=== PATIENT | female | born 2000 | race Caucasian/White ===

== ENCOUNTER 2019-02-06 01:06 | Emergency (ER) | payer OTHER ==
[~2019-02-06] VITALS: Ht 157.4 cm; Wt 99.7 kg
--- NOTE | 2019-02-06 01:41 | ED Integumentary General ---
General Chief Complaint: Skin/Wound Problems Stated Complaint: SUNBURN ON BACK Nursing Triage Note: Patient states that she got sunburned on 02/03/19 on her upper back. Patient states that it itches and she is unable to sleep. Patient rates her pain at a 10. Patient does have a sunburn on the upper portion of the back. No blisters are noted. Source: patient History of Present Illness Date Seen by Provider: Feb 06, 2019 Time Seen by Provider: 01:28 Initial Comments PT ARRIVES VIA POV C/O SUNBURN TO POSTERIOR SHOULDERS AND UPPER BACK--OCCURRED ON TUESDAY MORNING 02/03/19 STATES SHE WAS IN THE SUN FOR APPROXIMATELY AN HOUR--NO SUNSCREEN--WATCHING A "[employer]OT BALL GAME" PT STATES "I HAVE A SUN ALLERGY ANYWAY AND I BURN EASY" STATES IT HURTS AND IT ITCHES, AND SHE CAN'T GET TO SLEEP STATES SHE TOOK 2 IBUPROFEN 200 GM AT MIDNIGHT, AND PUT "CORTISONE AND ALOE" ON IT JUST PRIOR TO ARRIVAL STATES SHE "CANT' TAKE BENADRYL BECAUSE I HAVE A PROLONGED QT" ( STATES SHE HAD A COUSIN WHO FROM A REACTION TO AN EPIDURAL, SO SHE GOT TESTED FOR IT, AND STATES THAT MULTIPLE FAMILY MEMBERS WERE ALL TESTED FOR PROLONGED QT) PCP: SUPERVISOR CARTOGRAPHY: DARIEL MASSEY / JAZZMINE Allergies and Home Medications Patient Home Medication List Home Medication List Reviewed: Yes Review of Systems Review of Systems Constitutional: no symptoms reported EENTM: no symptoms reported Respiratory: no symptoms reported Cardiovascular: no symptoms reported Gastrointestinal: no symptoms reported Genitourinary: no symptoms reported Musculoskeletal: no symptoms reported Skin: see HPI Psychiatric/Neurological: No Symptoms Reported Endocrine: No Symptoms Reported Hematologic/Lymphatic: No Symptoms Reported Past Nlwdugv-Mubiau-Etarhv Hx Patient Social History Alcohol Use: Denies Use Recreational Drug Use: No Smoking Status: Never a Smoker Recent Foreign Travel: No Contact w/Someone Who Travel: No Recent Infectious Disease Expo: No Recent Hopitalizations: No Ebola Symptoms: Denies Symptoms Listed Physical Abuse: No Sexual Abuse: No Mistreated: No Fear: No Seasonal Allergies Seasonal Allergies: No Past Medical History Surgeries: Yes Adenoidectomy, Tonsillectomy Respiratory: No Cardiac: Yes (PROLONGED QT) Neurological: No Genitourinary: No Gastrointestinal: No Musculoskeletal: No Endocrine: No HEENT: No Cancer: No Psychosocial: No Integumentary: No Blood Disorders: No Physical Exam Vital Signs Vital Signs - First Documented 02/06/19 01:17 Temp 36.6 Pulse 90 Resp 18 B/P (MAP) 143/99 Pulse Ox 100 O2 Delivery Room Air Capillary Refill : General Appearance: WD/WN, no apparent distress Neck: normal inspection Cardiovascular: regular rate, rhythm Respiratory: normal breath sounds Extremities: normal inspection Neurologic/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 ) Progress/Results/Core Measures Results/Orders Vital Signs/I&O 02/06/19 02/06/19 01:17 01:46 Temp 36.6 36.6 Pulse 90 90 Resp 18 18 B/P (MAP) 143/99 Pulse Ox 100 100 O2 Delivery Room Air Room Air Departure Impression Primary Impression: 1st degree sunburn Disposition: 01 HOME, SELF-CARE Condition: Stable Departure-Patient Inst. Referrals: NO,LOCAL PHYSICIAN (PCP/Family) Primary Care Physician Patient Instructions: Sunburn (DC) Add. Discharge Instructions: MIX EQUAL PARTS OF 1% HYDROCORTISONE CREAM AND BENADRYL CREAM, AND APPLY TO AFFECTED AREAS EVER 3-4 HOURS TAKE IBUPROFEN 800 MG 4 TIMES A DAY NEEDED FOR PAIN TAKE TYLENOL 1 GRAM 4 TIMES A DAY NEEDED FOR PAIN TAKE CLARITIN OR ZYRTEC NEEDED FOR ITCHING. TAKE UNISOM NEEDED FOR SLEEP COOL COMPRESSES TO AREA AT 20 MINUTE INTERVALS All discharge instructions reviewed with patient and/or family. Voiced understanding. ROMAN ORDONEZ DO Feb 06, 2019 01:41
== END 2019-02-06 01:46 | disposition home or self-care (01) ==
LOC: ER 01:13
DX: L55.0 Sunburn of first degree (principal); Z90.89 Acquired absence of other organs
CPT/HCPCS: 99282

== ENCOUNTER 2020-07-31 18:20 | Emergency (ER) | payer OTHER ==
[~2020-07-31] VITALS: Ht 162 cm; Wt 113.6 kg
[2020-07-31 18:33] VITALS: BP 142/94
--- NOTE | 2020-07-31 18:50 | ED General ---
General Chief Complaint: General Problems/Pain Stated Complaint: REMOVED SX GLUE HAS HOLE ON CHEST SITE Source of Information: Patient Exam Limitations: No Limitations History of Present Illness Date Seen by Provider: Jul 31, 2020 Time Seen by Provider: 18:45 Initial Comments Patient is a 20-year-old female who presents to the emergency department today with a chief complaint of "a hole" on her chest where she had a Linq device placed approximately [address] Whyte at [facility] in [place]. Patient has a history of "long QT syndrome" and had the Linq placed for monitoring of her heart rate and rhythm. Patient denies any palpitations shortness of breath or other complaints of illness or injury. She was just concerned because the skin affix that was over the insertion site had started to come off. All other review of systems reviewed and negative except as stated above. Timing/Duration: 2-3 Days Severity: Mild Associated Systoms: Denies Symptoms Allergies and Home Medications Patient Home Medication List Home Medication List Reviewed: Yes Review of Systems Review of Systems Constitutional: see HPI EENTM: no symptoms reported Respiratory: no symptoms reported Cardiovascular: no symptoms reported Gastrointestinal: no symptoms reported All Other Systems Reviewed Negative Unless Noted: Yes Past Urucgvt-Ngkihk-Dtiwhm Hx Patient Social History Recent Hopitalizations: No Seasonal Allergies Seasonal Allergies: No Past Medical History Surgeries: Yes Adenoidectomy, Tonsillectomy Respiratory: No Cardiac: Yes (PROLONGED QT) Neurological: No Genitourinary: No Gastrointestinal: No Musculoskeletal: No Endocrine: No HEENT: No Cancer: No Psychosocial: No Integumentary: No Blood Disorders: No Physical Exam Vital Signs Vital Signs - First Documented 07/31/20 18:33 Temp 36.4 Pulse 65 Resp 18 B/P (MAP) 142/94 (110) Pulse Ox 96 Capillary Refill : Less Than 3 Seconds Height, Weight, BMI Height: '" Weight: lbs. oz. kg; 40.00 BMI Method: General Appearance: No Apparent Distress, WD/WN Eyes: Bilateral Eye Normal Inspection Neck: Normal Inspection Respiratory: No Accessory Muscle Use, No Respiratory Distress, Other (Small wound to the left of center on the patient's chest wall just between the breasts with no active drainage no surrounding erythema nontender) Neurologic/Psychiatric: Alert, Oriented x3, No Motor/Sensory Deficits, Normal Mood/Affect Skin: Normal Color, Warm/Dry, Other (As above, see chest exam) Progress/Results/Core Measures Suspected Sepsis SIRS Temperature: Pulse: 65 Respiratory Rate: 18 Blood Pressure 142 /94 Mean: 110 Results/Orders Vital Signs/I&O 07/31/20 18:33 Temp 36.4 Pulse 65 Resp 18 B/P (MAP) 142/94 (110) Pulse Ox 96 Capillary Refill : Less Than 3 Seconds Progress Note : Time: 19:06 Progress Note Remaining glue is removed from the area of insertion of the Linq device. Wound is cleaned. His skin affix is replaced with a piece of Steri-Strip over the top. Departure Impression Primary Impression: Wound dehiscence Disposition: HOME, SELF-CARE Condition: Stable Departure-Patient Inst. Decision time for Depature: 19:06 Referrals: NO,LOCAL PHYSICIAN (PCP/Family) Primary Care Physician Patient Instructions: Surgical Wound (DC) Add. Discharge Instructions: Keep the wound clean and dry. The Steri-Strip will come off over the course of several days. You may bathe the area. Return to the emergency department if you notice any redness around the wound site, drainage if you have fever or any other emergent concerning symptoms. Please keep your follow-up appointments with your editor house organ. BUCK MORTON MD Jul 31, 2020 18:50
== END 2020-07-31 19:16 | disposition home or self-care (01) ==
LOC: EDUNIT# 18:20 → ER 18:21
DX: T81.30XA Disruption of wound, unspecified, initial encounter (principal)

== ENCOUNTER 2020-12-31 23:16 | Emergency (ER) | payer OTHER ==
[~2020-12-31] VITALS: Ht 160 cm; Wt 136.0 kg
[2020-12-31 23:25] VITALS: BP 126/85
[2020-12-31 23:54] LABS: BASOPHILS % (AUTO) 0 % (0-10); EOSINOPHILS # (AUTO) 0.2 10^3/uL (0.0-0.3); EOSINOPHILS % (AUTO) 2 % (0-10); HEMATOCRIT 41 % (35-52); HEMOGLOBIN 13.7 g/dL (11.5-16.0); LYMPHOCYTES # (AUTO) 3.2 10^3/uL (1.0-4.0); LYMPHOCYTES % (AUTO) 32 % (12-44); MEAN CORPUSCULAR HEMOGLOBIN 30 pg (25-34); MEAN CORPUSCULAR HGB CONC 34 g/dL (32-36); MEAN CORPUSCULAR VOLUME 89 fL (80-99); MEAN PLATELET VOLUME 10.1 fL (9.0-12.2); MONOCYTES # (AUTO) 0.9 10^3/uL (0.0-1.0); MONOCYTES % (AUTO) 9 % (0-12); NEUTROPHILS # (AUTO) 5.8 10^3/uL (1.8-7.8); NEUTROPHILS % (AUTO) 57 % (42-75); PLATELET COUNT 251 10^3/uL (130-400); WHITE BLOOD COUNT 10.2 10^3/uL (4.3-11.0)
[2021-01-01 00:04] LABS: POTASSIUM 4.2 MMOL/L (3.6-5.0)
[2021-01-01 00:10] LABS: CREATININE SERUM 0.75 MG/DL (0.60-1.30)
[2021-01-01 00:12] LABS: MAGNESIUM 1.8 MG/DL (1.6-2.4)
--- NOTE | 2021-01-01 00:54 | ED General ---
General Chief Complaint: Cardiac/General Problems Stated Complaint: HEART PALPITATIONS,COVID+ Nursing Triage Note: states palpatations woke pt from sleep Allergies and Home Medications Allergies Coded Allergies: No Known Drug Allergies (Unverified , 01/01/21) Past Damtkho-Cucodb-Atawqf Hx Patient Social History Tobacco Use?: No Use of E-Cig and/or Vaping dev: No Substance use?: No Alcohol Use?: No Pt feels they are or have been: No Immunizations Up To Date Influenza Vaccine Up-to-Date: Yes; Up-to-Date Seasonal Allergies Seasonal Allergies: No Past Medical History Surgeries: Yes Adenoidectomy, Tonsillectomy Respiratory: No Cardiac: Yes (PROLONGED QT) Neurological: No Genitourinary: No Gastrointestinal: No Musculoskeletal: No Endocrine: No HEENT: No Cancer: No Psychosocial: Yes Bipolar, Depression Integumentary: No Blood Disorders: No Physical Exam Vital Signs Vital Signs - First Documented 12/31/20 23:25 Temp 36.1 Pulse 74 Resp 20 B/P (MAP) 126/85 (99) Pulse Ox 98 O2 Delivery Room Air Capillary Refill : Less Than 3 Seconds Height, Weight, BMI Height: '" Weight: lbs. oz. kg; 53.00 BMI Method: Progress/Results/Core Measures Suspected Sepsis SIRS Temperature: Pulse: 74 Respiratory Rate: 20 Laboratory Tests 12/31/20 23:45: White Blood Count 10.2 Blood Pressure 126 /85 Mean: 99 Laboratory Tests 12/31/20 23:45: Creatinine 0.75, Platelet Count 251 Results/Orders Lab Results Laboratory Tests Test 12/31/20 23:45 Range/Units White Blood Count 10.2 4.3-11.0 10^3/uL Red Blood Count 4.59 3.80-5.11 10^6/uL Hemoglobin 13.7 11.5-16.0 g/dL Hematocrit 41 35-52 % Mean Corpuscular Volume 89 80-99 fL Mean Corpuscular Hemoglobin 30 25-34 pg Mean Corpuscular Hemoglobin Concent 34 32-36 g/dL Red Cell Distribution Width 11.8 10.0-14.5 % Platelet Count 251 130-400 10^3/uL Mean Platelet Volume 10.1 9.0-12.2 fL Immature Granulocyte % (Auto) 0 % Neutrophils (%) (Auto) 57 42-75 % Lymphocytes (%) (Auto) 32 12-44 % Monocytes (%) (Auto) 9 0-12 % Eosinophils (%) (Auto) 2 0-10 % Basophils (%) (Auto) 0 0-10 % Neutrophils # (Auto) 5.8 1.8-7.8 10^3/uL Lymphocytes # (Auto) 3.2 1.0-4.0 10^3/uL Monocytes # (Auto) 0.9 0.0-1.0 10^3/uL Eosinophils # (Auto) 0.2 0.0-0.3 10^3/uL Basophils # (Auto) 0.0 0.0-0.1 10^3/uL Immature Granulocyte # (Auto) 0.0 0.0-0.1 10^3/uL Sodium Level 142 135-145 MMOL/L Potassium Level 4.2 3.6-5.0 MMOL/L Chloride Level 106 98-107 MMOL/L Carbon Dioxide Level 24 21-32 MMOL/L Anion Gap 12 5-14 MMOL/L Blood Urea Nitrogen 14 7-18 MG/DL Creatinine 0.75 0.60-1.30 MG/DL Estimat Glomerular Filtration Rate 98 BUN/Creatinine Ratio 19 Glucose Level 93 70-105 MG/DL Calcium Level 9.0 8.5-10.1 MG/DL Magnesium Level 1.8 1.6-2.4 MG/DL My Orders Orders - GABRIELE CRAMER MD Basic Metabolic Panel (12/31/20 23:35) Cbc With Automated Diff (12/31/20 23:35) Magnesium (12/31/20 23:35) Urine Dip-Bedside (12/31/20 23:35) Monitor-Rhythm Ecg Trace Only (12/31/20 23:35) Scopolamine Patch (Transderm-Scop Patch) (01/01/21 01:04) Scopolamine Patch (Transderm-Scop Patch) (01/01/21 01:05) Vital Signs/I&O 12/31/20 23:25 Temp 36.1 Pulse 74 Resp 20 B/P (MAP) 126/85 (99) Pulse Ox 98 O2 Delivery Room Air Capillary Refill : Less Than 3 Seconds Blood Pressure Mean: 99 ECG Initial ECG Impression Date: Dec 31, 2020 Initial ECG Impression Time: 23:36 Initial ECG Rate: 89 Initial ECG Rhythm: Normal Sinus Initial ECG Intervals: Normal Initial ECG Impression: Normal Comment Normal sinus rhythm with no ST elevation or depression. No abnormal intervals or axis deviation. Departure Impression Primary Impression: Palpitations Additional Impressions: COVID-19 Nausea Disposition: 01 HOME, SELF-CARE Condition: Improved Departure-Patient Inst. Referrals: NO,LOCAL PHYSICIAN (PCP/Family) Primary Care Physician Patient Instructions: COVID-19 ED, Palpitations (DC) Add. Discharge Instructions: Drink plenty of clear liquids to stay well-hydrated and eat a balanced diet. The scopolamine patch should be good for about 3 days of nausea treatment. Call with questions or concerns. Return to the ER if you have worsening symptoms. Follow through with your monoclonal antibody treatment as this is a good way to prevent worsening of disease and hospitalization. All discharge instructions reviewed with patient and/or family. Voiced understharshad ding. GABRIELE CRAMER MD Jan 01, 2021 00:54
[2021-01-01] MEDS ORDERED: SCOPOLAMINE 1.5 MG (TRANSDERM-SCOP) PATCH TD STA (01:04)
[2021-01-01] MEDS ORDERED: SCOPOLAMINE 1.5 MG (TRANSDERM-SCOP) PATCH ONE (01:05)
== END 2021-01-01 01:06 | disposition home or self-care (01) ==
LOC: EDUNIT# 23:16 → ER 23:22
DX: R00.2 Palpitations (principal); U07.1 COVID-19; R11.0 Nausea
CPT/HCPCS: 36415; 80048; 83735; 85025; 93005; 93041

== ENCOUNTER → 2021-01-05 | Outpatient (CLI) | payer OTHER ==
[~2021-01-05] VITALS: Ht 160 cm; Wt 113.6 kg
[~2021-01-05] MED LIST: CASIRIVIMAB/IMDEVIMAB 1,200 MG in NS (IVPB) 250 ML IV ONE; EPINEPHrine INJECTION 1 MG/ML AMP IM PRN; diphenhydrAMINE 50 MG/ML INJ (BENADRYL) IV PRN
[2021-01-05 11:50] VITALS: BP 139/80
[2021-01-05 12:42] VITALS: BP 125/72
== END ==
LOC: INFUSION 11:37
PROVIDERS: ATTEND Nurse Practitioner Family
DX: Z23 Encounter for immunization (principal); U07.1 COVID-19